=== PATIENT | female | born 1995 | race Caucasian/White ===

== ENCOUNTER → 2019-11-04 10:02 | Outpatient (CLI) | payer MEDICAID, SELFPAY ==
--- NOTE | 2019-11-04 10:10 | US_ITS ---
PROCEDURE: US THYROID CLINICAL INDICATION: LT THYROID NODULE COMPARISON: No exams were available for comparison FINDINGS: Right lobe: 4.3 x 1 x 1.4 cm. There is some heterogeneous echogenicity of the right lobe of the thyroid gland with no dominant nodule evident. There is a questionable 6 mm slightly hypoechoic nodule in the mid polar region posteriorly Left lobe: 4.1 x 1 x 1.3 cm. There is a 3 mm cyst in the mid polar region and a hypoechoic nodule measuring 3 mm in the upper pole with a central area of increased echogenicity There is a 3 x 0.6 cm oval hypoechoic area in the left neck just inferior to the submandibular gland consistent with a lymph node IMPRESSION: The no dominant nodule of the thyroid gland. 3 x 0.6 cm left submandibular lymph node Dictated by: Bryant Ceballos MD 11/04/2019 18:00 Electronically signed by Bryant Ceballos MD in [facility] 11/04/2019 18:00
--- NOTE | 2019-11-04 10:55 | US_ITS ---
PROCEDURE: US FNA LYMPH NODE CLINICAL INDICATION: LT SIDE NODULE Left-sided neck nodule COMPARISON: US THYROID from 11/04/2019 TECHNIQUE: Following obtaining informed consent, using aseptic technique and local anesthesia with buffered lidocaine, fine-needle aspiration was performed of the nodule of interest in the left neck using sonographic guidance. 3 passes were made into the nodule with a 21-gauge needle. Specimen was given to cytology. Specimen was also put in RPMI solution. FINDINGS: CYTOLOGY: Negative for malignancy. Compatible with a benign reactive lymph node IMPRESSION: Uneventful ultrasound-guided FNA of left nodule which was negative for malignancy compatible with a benign reactive lymph The patient tolerated the procedure well without evidence of immediate complications and left the ultrasound suite in stable condition. Dictated by: Bryant Ceballos MD 11/07/2019 10:19 Electronically signed by Bryant Ceballos MD in [facility] 11/07/2019 10:19
== END ==
PROVIDERS: PCP Nurse Practitioner Family; Visit Provider Otolaryngology
DX: D34 Benign neoplasm of thyroid gland (principal)
CPT/HCPCS: 60100; 76942; 76536